=== PATIENT | male | born 1965 | race Caucasian/White ===

== ENCOUNTER → 2020-07-31 13:26 | Outpatient (BNVA) | payer MEDICAID, SELFPAY | PROVIDERS: Family Provider Internal Medicine; PCP Internal Medicine; Visit Provider Specialist | DX: S06.9X9D Unspecified intracranial injury with loss of consciousness of unspecified duration, subsequent encounter (principal); X58.XXXD Exposure to other specified factors, subsequent encounter; F02.81 Dementia in other diseases classified elsewhere, unspecified severity, with behavioral disturbance; F17.220 Nicotine dependence, chewing tobacco, uncomplicated | CPT/HCPCS: 99213 ==

== ENCOUNTER 2020-09-05 10:32 | Emergency (ER) | payer MEDICAID, SELFPAY ==
[2020-09-05 10:41] VITALS: BP 132/78; PULSE 75; RESP 18; TEMP 36.9; O2SAT 96; BMI 23.0
--- NOTE | 2020-09-05 10:44 | XR_ITS ---
WS: [id number] LEFT KNEE: 3 VIEW(S) TECHNIQUE: AP, oblique(s) and lateral. HISTORY: injury COMPARISON: None available. No fracture or dislocation. No joint space narrowing or osteophytes. No joint effusion. No soft tissue abnormality. XR/XR knee LT 3V* [id number] IMPRESSION: Normal LEFT knee.
--- NOTE | 2020-09-05 10:56 | W.ED.EXTPRO ---
HPI - Extremity Problem General: Chief complaint: Extremity Injury, Lower Stated complaint: L KNEE INJURY Time Seen by Provider: 09/05/20 10:45 Source: patient Mode of arrival: ambulatory Limitations: no limitations History of Present Illness: HPI Narrative: 55-year-old male states he was walking yesterday and felt like his left knee just gave out. He states he had a ligamentous injury years and years ago. He states he felt a pop in his knee and has been swollen unable to bear any weight since then. States pain is sharp in nature and rates an 8 out of 10. He denies any recent injury. Associated symptoms: Deny chest pain, fever(s) or rash Review of Systems Const: Denies: fever(s), chills, body aches or change in appetite Eyes: Denies: blurry vision or eye discomfort ENMT: Denies: throat pain or dental pain Card: Denies: chest pain Resp: Denies: dyspnea GI: Denies: abdominal pain, nausea, vomiting or diarrhea : Denies: dysuria Musc: Reports: extremity pain Skin/Breast: Denies: rash Neuro: Denies: headache(s) Psych: Denies: depression Blaine/Lymph: Denies: easy bruising All/Imm: Denies: urticaria PFSH ED PFSH: Family History Other CAD (coronary artery disease) Dementia Hypertension Stroke Social History Smoking and tobacco status: current every day smoker smokeless tobacco Smokeless tobacco user: chewing tobacco History of recent travel: No Physical Exam Const: COMMON NORMALS: no acute distress, patient oriented x3 and healthy appearing HENMT: COMMON NORMALS: normocephalic and atraumatic HEAD & SCALP: normocephalic and atraumatic Eye: COMMON NORMALS: Equal, round and reactive pupils present and EOMs intact bilaterally PUPIL: Yes Equal, round and reactive pupils present Neck/C-Spine: COMMON NORMALS: full ROM and supple Chest: COMMONS NORMALS: normal inspection of the chest and normal palpation of entire chest wall Resp: COMMON NORMALS: normal respiratory effort, No retractions, No use of accessory muscles and clear to auscultation bilaterally AUSCULTATION: clear to auscultation bilaterally Cardio: COMMON NORMALS: regular rate, regular rhythm and No murmurs present (Cardio) RATE: regular rate RHYTHM: regular rhythm GI: COMMON NORMALS: Normal to inspection, nondistended, normoactive bowel sounds present, Soft to palpation, non-tender and no masses PALPATION: Yes Soft to palpation Extremity: NARRATIVE EXTREMITY EXAM: Tenderness along left knee with slight swelling. Neuro: COMMON NORMALS: patient oriented x3, moves all extremities and no focal motor deficits Psych: COMMON NORMALS: mental status grossly normal, Normal thought process present and cooperative THOUGHT PROCESS: Normal thought process present Skin: COMMON NORMALS: no rashes or lesions noted and no wounds GENERAL SKIN EXAM: no rashes or lesions noted Course Vital Signs: Vital signs: Vital Signs Temperature 98.5 F 09/05/20 10:41 Pulse Rate 75 09/05/20 10:41 Respiratory Rate 18 09/05/20 10:41 Blood Pressure 132/78 09/05/20 10:41 Pulse Oximetry 96 09/05/20 10:41 MDM - Extremity (Nontraumatic) MDM Narrative: Medical decision making narrative: Patient presents with a knee sprain. Patient likely has either meniscus or ligament injury. Will place a knee immobilizer and he is to be nonweightbearing. We will have him follow-up with orthopedics. X-ray showed no acute findings. He has no signs of septic joint. Imaging Data^: xr l knee: Attestation: I personally reviewed and interpreted this imaging study as follows: My impression: no acute abnormality Discharge Plan Discharge Patient Disposition: Home Clinical Impression: Knee sprain Qualifiers: Encounter type: initial encounter Involved ligament of knee: unspecified ligament Laterality: left Qualified Code(s): S83.92XA - Sprain of unspecified site of left knee, initial encounter Condition: Stable Prescriptions: New Naprosyn 500 mg tablet 500 mg PO BID PRN (Reason: pain) Qty: 20 RF: 0 No Action memantine [Namenda] 10 mg tablet 10 mg PO BID Qty: 60 RF: 5 memantine [Namenda Titration Juan Diego] 5-10 mg tablets,dose pack See Rx Instructions PO PER PKG DIR Qty: 49 RF: 0 Discharge Orders: Discharge Order (Routine); Ordered 09/05/20 Ordered By: Juanita Pierce Referrals: Christie Oliver MD [Physician] - 1-3 days Elliott Zhang DO [Primary Care Provider] - Discharge Diet: Advance as tolerated Discharge Activity: Resume usual activity Patient Instructions: Knee Sprain (ED), Knee Immobilizer (ED) Coding Level of Care Code ED [employer] Developer for Chg Fwd Exam Comprehensive
[2020-09-05] MEDS: HYDROcodone-acetaminophen 7.5-325 mg Tablet 1 TAB PO (11:16)
--- NOTE | 2020-09-05 13:49 | DCPLANNER ---
Addendum entered by Ruby Funez 09/11/20 16:00: catering sales manager spoke with Xiao at ortho, was told that patient is to follow up with his primary care physician. Clinic spoke with patients mother. Original Note: catering sales manager was asked to schedule a follow up appointment for patient with ortho. catering sales manager called the ortho clinic, spoke with Xiao, gave clinic patients information. catering sales manager was told that patients information would be printed and reviewed. Clinic will call patient with appointment information.
== END 2020-09-05 11:35 | disposition home or self-care (01) ==
PROVIDERS: Emergency Provider Emergency Medicine; PCP Internal Medicine
DX: S83.92XA Sprain of unspecified site of left knee, initial encounter (principal); F17.220 Nicotine dependence, chewing tobacco, uncomplicated; W19.XXXA Unspecified fall, initial encounter
CPT/HCPCS: 12345; 29530; 73562; 99281; 99283; E0114

== ENCOUNTER → 2020-10-17 15:38 | Outpatient (BNVA) | payer MEDICAID, SELFPAY | PROVIDERS: PCP Internal Medicine; Referring Provider Emergency Medicine; Visit Provider Specialist | DX: S83.92XA Sprain of unspecified site of left knee, initial encounter (principal) | CPT/HCPCS: 73560; 73565 ==

== ENCOUNTER 2020-11-02 13:21 | Outpatient (CLI) | payer MEDICAID, SELFPAY ==
--- NOTE | 2020-11-02 13:34 | MR_ITS ---
WS: [id number] MRI LEFT KNEE NONCONTRAST TECHNIQUE: Axial PD, coronal PD fat sat, coronal PD, sagittal PD, and sagittal PD fat-sat images obta ined. CLINICAL INFORMATION: PAIN IN UNSPECIFIED KNEE COMPARISON: None. FINDINGS: Distal quadriceps and patella tendons are intact. Hypertrophic patella. ACL is intact. Mucoid degener ation involving the ACL. Thinning of the ACL. Normal posterior cruciate ligament. Normal lateral meni scus. Horizontal tear involving the posterior horn medial meniscus extending to the articular surface . Contusion involving the anterolateral femoral condyle. Moderate chondromalacia patella. No subchondral edema. Medial and lateral collateral ligaments are in tact. Popliteal cyst measuring 1.3 x 3.8 x 1.5 CM. MR/MR knee LT wo con* [id number] IMPRESSION: 1. Thinning of the ACL with mucoid degeneration. ACL appears intact. 2. Normal PCL. 3. Contusion involving the anterolateral femoral condyle with subchondral sulma a. 4. Horizontal tear involving the posterior horn medial meniscus extending to t he articular surface. 5. Moderate chondromalacia patella. No subchondral edema. 6. Moderate chondromalacia involving the medial and lateral joint compartments . 7. Popliteal cyst measuring1.3 x 3.8 x 1.5 CM.
== END 2020-11-02 13:22 | disposition home or self-care (01) ==
LOC: RADSHAW 13:25
PROVIDERS: PCP Internal Medicine; Visit Provider Specialist
DX: M17.12 Unilateral primary osteoarthritis, left knee (principal); M71.22 Synovial cyst of popliteal space [Baker], left knee; M22.42 Chondromalacia patellae, left knee; M25.562 Pain in left knee; S80.02XA Contusion of left knee, initial encounter; X58.XXXA Exposure to other specified factors, initial encounter
CPT/HCPCS: 73721

== ENCOUNTER → 2021-06-19 13:55 | Outpatient (BNVA) | payer MEDICAID, SELFPAY | PROVIDERS: PCP Internal Medicine; Visit Provider Specialist | DX: F03.90 Unspecified dementia, unspecified severity, without behavioral disturbance, psychotic disturbance, mood disturbance, and anxiety (principal); S06.9X9S Unspecified intracranial injury with loss of consciousness of unspecified duration, sequela; Y93.9 Activity, unspecified; Z71.89 Other specified counseling; F17.220 Nicotine dependence, chewing tobacco, uncomplicated | CPT/HCPCS: 99213 ==

== ENCOUNTER → 2025-08-30 13:53 | Outpatient (BNVA) | payer MEDICAID, SELFPAY | PROVIDERS: PCP Internal Medicine; Referring Provider Family Medicine; Visit Provider Nurse Practitioner Family | DX: L81.4 Other melanin hyperpigmentation (principal); L57.8 Other skin changes due to chronic exposure to nonionizing radiation; L90.5 Scar conditions and fibrosis of skin; L73.8 Other specified follicular disorders; D48.5 Neoplasm of uncertain behavior of skin; L57.0 Actinic keratosis | CPT/HCPCS: 11102; 17000; 99203 ==

== ENCOUNTER → 2025-09-20 08:11 | Outpatient (BNVA) | payer MEDICAID, SELFPAY | PROVIDERS: PCP Internal Medicine; Visit Provider Dermatology | DX: C44.41 Basal cell carcinoma of skin of scalp and neck (principal); L57.0 Actinic keratosis | CPT/HCPCS: 12042; 17000; 17311 ==